=== PATIENT | female | born 1995 | race Caucasian/White ===

== ENCOUNTER 2018-06-16 00:28 | Emergency (ER) | payer MEDICAID, OTHER ==
[~2018-06-16] VITALS: Ht 162.6 cm; Wt 64.6 kg
[2018-06-16] MEDS ORDERED: DIPHENHYDRAMINE 25 MG CAPSULE ONE (01:13)
[2018-06-16] MEDS ORDERED: FAMOTIDINE 20 MG TABLET ONE (01:14)
--- NOTE | 2018-06-16 01:16 | NUR ---
PT SITTING UP ON GURNEY, FAMILY AT PT'S BEDSIDE, NAD, MEDICATED PER MAR, CALL LIGHT WITHIN REACH.
[2018-06-16] MEDS ORDERED: DIPHENHYDRAMINE 25 MG CAPSULE PO ONE (01:30)
[2018-06-16] MEDS ORDERED: FAMOTIDINE 20 MG TABLET PO ONE (01:30)
[2018-06-16 02:29] VITALS: BP 116/66
== END 2018-06-16 02:33 | disposition home or self-care (01) ==
LOC: ED 02:05
DX: T78.40XA Allergy, unspecified, initial encounter (principal); F17.210 Nicotine dependence, cigarettes, uncomplicated; X58.XXXA Exposure to other specified factors, initial encounter
CPT/HCPCS: 99284; J7512; Q0163

== ENCOUNTER 2019-08-31 21:16 | Inpatient (IN) | payer OTHER ==
[~2019-08-31] VITALS: Ht 167.6 cm; Wt 82.2 kg
[2019-08-31] MEDS ORDERED: OXYTOCIN 30U/ 0.9% NaCL 500ML 500 ML IV PRN (21:29)
[2019-08-31] MEDS ORDERED: OXYTOCIN 30U/ 0.9% NaCL 500ML 500 ML IV ONE (21:29)
[2019-08-31] MEDS ORDERED: D5%-LACTATED RINGERS 1,000 ML IV SCH (21:29)
[2019-08-31] MEDS ORDERED: FENTANYL PF 100 MCG/2ML IV PRN (21:30)
[2019-08-31] MEDS ORDERED: TERBUTALINE 1 MG/ML, 1ML IVPush PRN (21:30)
[2019-08-31] MEDS ORDERED: CALCIUM CARBONATE 500 MG TAB.CHEW PO PRN (21:30)
[2019-08-31] MEDS ORDERED: MISOPROSTOL 25 MCG TABLET VG PRN (21:30)
[2019-08-31] MEDS ORDERED: ONDANSETRON 2MG/ML, 2ML IVPush PRN (21:30)
[2019-08-31] MEDS ORDERED: FENTANYL PF 100 MCG/2ML IVPush PRN (21:30)
[2019-08-31] MEDS ORDERED: ALUMINUM/MAG/SIMETHICONE 30 ML UDC PO PRN (21:30)
[2019-08-31] MEDS ORDERED: TERBUTALINE 1 MG/ML, 1ML SQ PRN (21:30)
[2019-08-31] MEDS ORDERED: FENTANYL/BUPIV./NS/PF 250 ML EPIDCONT SCH ×2 (21:31→23:23)
[2019-08-31] MEDS ORDERED: LACTATED RINGERS 1,000 ML IV SCH ×2 (21:31→23:23)
[2019-08-31] MEDS ORDERED: NEWBORN KIT ONE (21:39)
[2019-08-31] MEDS ORDERED: LIDOCAINE 1%, 20ML ONE (21:40)
[2019-08-31] MEDS ORDERED: OXYTOCIN 30U/ 0.9% NaCL 500ML 500 ML ONE (21:40)
[2019-08-31] MEDS ORDERED: MISOPROSTOL 200 MCG TABLET ONE (21:40)
[2019-08-31] MEDS: LACTATED RINGERS 1,000 ML IV SCH (21:45)
[2019-08-31 21:52] LABS: BASOPHILS # (AUTO) 0.03 x10^3/uL (0-0.1); BASOPHILS % (AUTO) 0 % (0-1); EOSINOPHILS # (AUTO) 0.09 x10^3/uL (0-0.4); EOSINOPHILS % (AUTO) 1 % (1-7); LYMPHOCYTES # (AUTO) 2.39 x10^3/uL (1-3.4); LYMPHOCYTES % (AUTO) 24 % (22-44); MD NO; MEAN CORPUSCULAR HEMOGLOBIN 32.8 pg (27.0-34.8); MEAN CORPUSCULAR HGB CONC 34.1 g/dL (32.4-35.8); MEAN PLATELET VOLUME 8.8 fL (7.4-10.4); MONOCYTES # (AUTO) 0.69 x10^3/uL (0.2-0.8); MONOCYTES % (AUTO) 7 % (2-9); NEUTROPHILS % (AUTO) 67 % (42-75); PLATELET COUNT 234 x10^3/uL (130-400); RED BLOOD COUNT 3.76 x10^6/uL (3.82-5.3); RED CELL DISTRIBUTION WIDTH 12.8 % (9.6-15.2)
[2019-08-31] MEDS ORDERED: EPHEDRINE 50 MG/ML, 1ML IVPush PRN ×2 (22:00→23:30)
[2019-08-31] MEDS ORDERED: PLEASE ENTER HEIGHT AND WEIGHT MC SCH (22:00)
[2019-08-31] MEDS ORDERED: FENTANYL PF 500 MCG, BUPIVACAINE/PF 0.5%, 30ML 62.5 ML in SODIUM CHLORIDE 0.9% 177.5 ML EPIDCONT SCH (22:30)
[2019-08-31] MEDS ORDERED: LACTATED RINGERS 1,000 ML IVBOLUS PRN (23:30)
[2019-08-31] MEDS ORDERED: NALOXONE 0.4 MG/ML, 1ML IVPush PRN (23:30)
[2019-09-01] MEDS: LACTATED RINGERS 1,000 ML IV SCH ×3 (06:20→23:26)
[2019-09-01 08:06] VITALS: BP 119/67
[2019-09-01] MEDS: LACTATED RINGERS 1,000 ML IVBOLUS PRN ×2 (14:31→15:23)
[2019-09-01] MEDS ORDERED: BUPIVACAINE 0.25% ONE ×2 (15:24→15:29)
[2019-09-01] MEDS ORDERED: FENTANYL/BUPIV./NS/PF 250 ML EPIDCONT ONE (15:29)
[2019-09-01] MEDS ORDERED: LIDOCAINE 1%, 20ML ONE (15:29)
[2019-09-01] MEDS ORDERED: LIDOCAINE/PF 1.5%-EPI 1:200K, 30ML ONE (15:29)
[2019-09-01] MEDS ORDERED: LACTATED RINGERS 1,000 ML IV SCH (15:58)
[2019-09-01] MEDS: FENTANYL/BUPIV./NS/PF 250 ML EPIDCONT SCH (15:58)
[2019-09-01] MEDS ORDERED: DIPHENHYDRAMINE 50 MG/ML, 1ML IVPush PRN (16:00)
[2019-09-01] MEDS ORDERED: EPHEDRINE 50 MG/ML, 1ML IVPush PRN (16:00)
[2019-09-01] MEDS ORDERED: NALOXONE 0.4 MG/ML, 1ML IVPush PRN (16:00)
[2019-09-01] MEDS ORDERED: LACTATED RINGERS 1,000 ML IVBOLUS PRN (16:00)
[2019-09-01] MEDS ORDERED: ONDANSETRON 2MG/ML, 2ML IVPush PRN (16:00)
[2019-09-01] MEDS ORDERED: OXYTOCIN 30U/ 0.9% NaCL 500ML 500 ML IV PRN (21:29)
[2019-09-02] MEDS ORDERED: TERBUTALINE 1 MG/ML, 1ML ONE (01:28)
[2019-09-02] MEDS: LACTATED RINGERS 1,000 ML IV SCH (02:30)
[2019-09-02] MEDS ORDERED: FENTANYL PF 100 MCG/2ML ONE ×2 (06:08→13:45)
[2019-09-02] MEDS ORDERED: BUPIVACAINE 0.25% ONE (06:08)
[2019-09-02] MEDS ORDERED: IBUPROFEN 600 MG TABLET ONE (13:13)
[2019-09-02] MEDS ORDERED: IBUPROFEN 200 MG TABLET PO STA (13:15)
[2019-09-02] MEDS ORDERED: AMPICILLIN 2 GM in SODIUM CHLORIDE 0.9% 100 ML IV STA (13:16)
[2019-09-02] MEDS ORDERED: IBUPROFEN 600 MG TABLET PO ONE (13:30)
[2019-09-02] MEDS ORDERED: AMPICILLIN 2 GM in SODIUM CHLORIDE 0.9% 100 ML IV ONE (13:30)
[2019-09-02] MEDS ORDERED: CLINDAMYCIN PMX 900MG/50ML 50 ML ONE (13:32)
[2019-09-02] MEDS: CLINDAMYCIN PMX 900MG/50ML 50 ML IV SCH ×2 (13:34→21:37)
[2019-09-02] MEDS ORDERED: SIMETHICONE 80 MG CHEW TAB PO PRN (14:00)
[2019-09-02] MEDS ORDERED: ACETAMINOPHEN 325 MG TABLET PO PRN (14:00)
[2019-09-02] MEDS ORDERED: ONDANSETRON 2MG/ML, 2ML IV PRN (14:00)
[2019-09-02] MEDS ORDERED: OXYcodone/APAP 5/325MG TABLET PO PRN ×2 (14:00)
[2019-09-02 14:40] LABS: INTERNATIONAL NORMALIZED RATIO 0.93 (0.93-1.1); PROTHROMBIN TIME 9.8 Seconds (9.6-11.5)
[2019-09-02] MEDS ORDERED: OXYTOCIN 30U/ 0.9% NaCL 500ML 500 ML ONE (14:52)
[2019-09-02] MEDS: OXYTOCIN 30U/ 0.9% NaCL 500ML 500 ML IV SCH ×2 (14:57→23:32)
[2019-09-02 14:58] LABS: BASOPHILS # (AUTO) 0.02 x10^3/uL (0-0.1); BASOPHILS % (AUTO) 0 % (0-1); EOSINOPHILS % (AUTO) 0 % (1-7); LYMPHOCYTES # (AUTO) 0.38 x10^3/uL (1-3.4); LYMPHOCYTES % (AUTO) 3 % (22-44); MD SCAN; MEAN CORPUSCULAR HEMOGLOBIN 33.1 pg (27.0-34.8); MEAN CORPUSCULAR HGB CONC 34.6 g/dL (32.4-35.8); MEAN CORPUSCULAR VOLUME 95.8 fL (80-100); MEAN PLATELET VOLUME 8.8 fL (7.4-10.4); MONOCYTES # (AUTO) 0.18 x10^3/uL (0.2-0.8); MONOCYTES % (AUTO) 1 % (2-9); NEUTROPHILS % (AUTO) 95 % (42-75); PLATELET COUNT 164 x10^3/uL (130-400); RED BLOOD COUNT 3.49 x10^6/uL (3.82-5.3); RED CELL DISTRIBUTION WIDTH 12.6 % (9.6-15.2)
[2019-09-02] MEDS: FENTANYL/BUPIV./NS/PF 250 ML EPIDCONT SCH (15:58)
[2019-09-02 16:00] VITALS: BP 120/78
[2019-09-02] MEDS: AMPICILLIN 2 GM in SODIUM CHLORIDE 0.9% 100 ML IV SCH (18:23)
[2019-09-02 20:00] VITALS: BP 117/72
[2019-09-02 21:09] LABS: MEAN CORPUSCULAR HEMOGLOBIN 32.4 pg (27.0-34.8); MEAN CORPUSCULAR HGB CONC 33.6 g/dL (32.4-35.8); MEAN CORPUSCULAR VOLUME 96.4 fL (80-100); MEAN PLATELET VOLUME 8.9 fL (7.4-10.4); PLATELET COUNT 182 x10^3/uL (130-400); RED BLOOD COUNT 3.51 x10^6/uL (3.82-5.3); RED CELL DISTRIBUTION WIDTH 12.8 % (9.6-15.2)
[2019-09-02 21:42] LABS: BASOPHILS # (AUTO) 0.04 x10^3/uL (0-0.1); BASOPHILS % (AUTO) 0 % (0-1); EOSINOPHILS # (AUTO) 0.01 x10^3/uL (0-0.4); EOSINOPHILS % (AUTO) 0 % (1-7); LYMPHOCYTES # (AUTO) 0.86 x10^3/uL (1-3.4); LYMPHOCYTES % (AUTO) 3 % (22-44); MD NO; MONOCYTES % (AUTO) 5 % (2-9); NEUTROPHILS % (AUTO) 92 % (42-75)
[2019-09-03 00:05] VITALS: BP 114/69
[2019-09-03] MEDS: AMPICILLIN 2 GM in SODIUM CHLORIDE 0.9% 100 ML IV SCH ×3 (00:51→12:31)
[2019-09-03] MEDS: IBUPROFEN 600 MG TABLET PO PRN ×3 (01:05→17:53)
[2019-09-03 05:14] VITALS: BP 114/77
[2019-09-03] MEDS: CLINDAMYCIN PMX 900MG/50ML 50 ML IV SCH ×2 (05:38→14:04)
[2019-09-03 07:37] VITALS: BP 112/71
[2019-09-03] MEDS: PRENATAL VIT/IRON/FA 1 EACH TABLET PO SCH (08:25)
[2019-09-03] MEDS: OXYTOCIN 30U/ 0.9% NaCL 500ML 500 ML IV SCH (09:32)
[2019-09-03 12:00] VITALS: BP 123/78
[2019-09-03 19:20] VITALS: BP 129/87
[2019-09-03] MEDS: DOCUSATE 100 MG CAPSULE PO PRN (19:29)
[2019-09-03 23:33] VITALS: BP 98/59
[2019-09-04] MEDS: IBUPROFEN 600 MG TABLET PO PRN ×2 (03:19→09:29)
[2019-09-04 03:26] VITALS: BP 100/60
[2019-09-04 07:45] VITALS: BP 124/84
[2019-09-04] MEDS: PRENATAL VIT/IRON/FA 1 EACH TABLET PO SCH (09:00)
[2019-09-04] MEDS: DOCUSATE 100 MG CAPSULE PO PRN (09:29)
[2019-09-04] MEDS ORDERED: OXYC-302 PO (13:24)
[2019-09-04] MEDS ORDERED: IBUP-1222 PO (13:25)
== END 2019-09-04 14:31 | disposition home or self-care (01) | DRG 807 ==
LOC: LDIP 21:16 → 2NW 09-02 15:58
PROVIDERS: ADMIT Obstetrics & Gynecology; ATTEND Obstetrics & Gynecology
PROC: 10D07Z6 Extraction of Products of Conception, Vacuum, Via Natural or Artificial Opening (ICD-10-PCS; principal; 2019-09-02)
PROC: 3E033VJ Introduction of Other Hormone into Peripheral Vein, Percutaneous Approach (ICD-10-PCS; 2019-09-02)
PROC: 0HQ9XZZ Repair Perineum Skin, External Approach (ICD-10-PCS; 2019-09-02)
PROC: 3E0R3BZ Introduction of Anesthetic Agent into Spinal Canal, Percutaneous Approach (ICD-10-PCS; 2019-09-02)
PROC: 00HU33Z Insertion of Infusion Device into Spinal Canal, Percutaneous Approach (ICD-10-PCS; 2019-09-02)
DX: O77.9 Labor and delivery complicated by fetal stress, unspecified (principal); Z37.0 Single live birth; O70.0 First degree perineal laceration during delivery; Z3A.40 40 weeks gestation of pregnancy; Z87.891 Personal history of nicotine dependence; Z90.49 Acquired absence of other specified parts of digestive tract
CPT/HCPCS: 36415; J7121; 82803; 83605; 85025; 85610; 86592; 86850; 86900; G0378; J0290; J3010; J3490; J2590; J3105; J7120

== ENCOUNTER → 2020-06-15 | Outpatient (CLI) | payer OTHER ==
[~2020-06-15] MED LIST: IBUP-1222 PO; OXYC1TAB14 PO
[2020-06-15 18:44] LABS: BASOPHILS % (AUTO) 0 % (0-1); EOSINOPHILS % (AUTO) 1 % (1-7); LYMPHOCYTES % (AUTO) 34 % (22-44); MEAN CORPUSCULAR HEMOGLOBIN 31.8 pg (27.0-34.8); MEAN CORPUSCULAR HGB CONC 34.2 g/dL (32.4-35.8); MONOCYTES % (AUTO) 6 % (2-9); NEUTROPHILS % (AUTO) 58 % (42-75); PLATELET COUNT 282 x10^3/uL (130-400); RED BLOOD COUNT 4.27 x10^6/uL (3.82-5.3)
[2020-06-15 18:47] LABS: MICROSCOPIC AUTO
[2020-06-15 18:48] LABS: MD NO
== END | disposition home or self-care (01) ==
LOC: LAB 17:50
PROVIDERS: ATTEND Student in an Organized Health Care Education/Training Program
DX: Z34.81 Encounter for supervision of other normal pregnancy, first trimester (principal); Z3A.00 Weeks of gestation of pregnancy not specified
CPT/HCPCS: 36415; 81001; 85025; 86592; 86762; 86787; 86803; 86850; 86900; 87340; 87806; G0475

== ENCOUNTER 2020-07-28 11:04 | Outpatient (CLI) | payer OTHER | END 2020-07-28 23:59 | disposition home or self-care (01) | LOC: LAB 11:04 | PROVIDERS: ATTEND Student in an Organized Health Care Education/Training Program | DX: Z34.82 Encounter for supervision of other normal pregnancy, second trimester (principal) | CPT/HCPCS: 36415; 82105; 82677; 84702; 86336 ==

== ENCOUNTER 2020-12-14 21:51 | Outpatient (CLI) | payer OTHER ==
[~2020-12-14] VITALS: Ht 165.1 cm; Wt 75.4 kg
[2020-12-16] MEDS ORDERED: IBUP-1222 PO (12:01)
== END 2020-12-15 00:32 | disposition home or self-care (01) ==
LOC: LDOP 21:51
PROVIDERS: ATTEND Student in an Organized Health Care Education/Training Program
DX: O62.9 Abnormality of forces of labor, unspecified (principal); Z3A.38 38 weeks gestation of pregnancy
CPT/HCPCS: 59025

== ENCOUNTER 2020-12-15 03:32 | Inpatient (IN) | payer OTHER ==
[~2020-12-15] VITALS: Ht 170.2 cm; Wt 75.0 kg
[2020-12-15] MEDS ORDERED: NEWBORN KIT ONE (03:51)
[2020-12-15] MEDS ORDERED: FENTANYL PF 100 MCG/2ML IV PRN (04:00)
[2020-12-15] MEDS ORDERED: TERBUTALINE 1 MG/ML, 1ML IVPush PRN (04:00)
[2020-12-15] MEDS ORDERED: ONDANSETRON 2MG/ML, 2ML IVPush PRN (04:00)
[2020-12-15] MEDS ORDERED: TERBUTALINE 1 MG/ML, 1ML SQ PRN (04:00)
[2020-12-15] MEDS ORDERED: FENTANYL PF 100 MCG/2ML IVPush PRN (04:00)
[2020-12-15] MEDS ORDERED: OXYTOCIN 30U/ 0.9% NaCL 500ML 500 ML IV ONE (04:00)
[2020-12-15 04:05] LABS: BASOPHILS % (AUTO) 1 % (0-1); EOSINOPHILS % (AUTO) 0 % (1-7); LYMPHOCYTES % (AUTO) 24 % (22-44); MEAN CORPUSCULAR HEMOGLOBIN 31.6 pg (27.0-34.8); MEAN CORPUSCULAR HGB CONC 34.1 g/dL (32.4-35.8); MEAN PLATELET VOLUME 8.7 fL (7.4-10.4); MONOCYTES % (AUTO) 7 % (2-9); NEUTROPHILS % (AUTO) 68 % (42-75); PLATELET COUNT 220 x10^3/uL (130-400); RED BLOOD COUNT 4.17 x10^6/uL (3.82-5.3); RED CELL DISTRIBUTION WIDTH 12.6 % (9.6-15.2)
[2020-12-15] MEDS ORDERED: OXYcodone/APAP 5/325MG TABLET PO PRN ×2 (05:00)
[2020-12-15] MEDS ORDERED: SIMETHICONE 80 MG CHEW TAB PO PRN (05:00)
[2020-12-15] MEDS: OXYTOCIN 30U/ 0.9% NaCL 500ML 500 ML IV SCH ×2 (05:00→15:00)
[2020-12-15] MEDS ORDERED: MISOPROSTOL 200 MCG TABLET PR PRN (05:00)
[2020-12-15] MEDS ORDERED: ONDANSETRON 2MG/ML, 2ML IV PRN (05:00)
[2020-12-15] MEDS ORDERED: ACETAMINOPHEN 325 MG TABLET PO PRN (05:00)
[2020-12-15] MEDS: IBUPROFEN 600 MG TABLET PO PRN ×3 (05:08→21:36)
[2020-12-15 06:15] VITALS: BP 114/69
[2020-12-15] MEDS: DOCUSATE 100 MG CAPSULE PO PRN (08:54)
[2020-12-15] MEDS: PRENATAL VIT/IRON/FA 1 EACH TABLET PO SCH (08:55)
[2020-12-15 11:00] VITALS: BP 104/64
[2020-12-15 12:24] LABS: BASOPHILS % (AUTO) 1 % (0-1); EOSINOPHILS % (AUTO) 0 % (1-7); LYMPHOCYTES % (AUTO) 18 % (22-44); MEAN CORPUSCULAR HEMOGLOBIN 32.1 pg (27.0-34.8); MEAN CORPUSCULAR HGB CONC 34.8 g/dL (32.4-35.8); MEAN PLATELET VOLUME 9.2 fL (7.4-10.4); MONOCYTES % (AUTO) 6 % (2-9); NEUTROPHILS % (AUTO) 76 % (42-75); PLATELET COUNT 216 x10^3/uL (130-400); RED BLOOD COUNT 3.89 x10^6/uL (3.82-5.3); RED CELL DISTRIBUTION WIDTH 12.7 % (9.6-15.2)
[2020-12-15 16:20] VITALS: BP 109/71
[2020-12-15 19:30] VITALS: BP 114/71
[2020-12-16] VITALS: BP 104/67
[2020-12-16] MEDS ORDERED: HEPATITIS B PED VACCINE/PF 5MCG/0.5ML IM-VACC ONE (00:19)
[2020-12-16 04:00] VITALS: BP 108/65
[2020-12-16] MEDS: DOCUSATE 100 MG CAPSULE PO PRN (09:42)
[2020-12-16] MEDS: PRENATAL VIT/IRON/FA 1 EACH TABLET PO SCH (09:42)
[2020-12-16 10:20] VITALS: BP 114/73
[2020-12-16] MEDS ORDERED: IBUP-1222 PO (12:01)
== END 2020-12-16 12:30 | disposition home or self-care (01) | DRG 807 ==
LOC: LDOP 03:32 → LDIP 03:38 → 2NW 05:44
PROVIDERS: ADMIT Student in an Organized Health Care Education/Training Program; ATTEND Student in an Organized Health Care Education/Training Program
PROC: 10E0XZZ Delivery of Products of Conception, External Approach (ICD-10-PCS; principal; 2020-12-15)
PROC: 10907ZC Drainage of Amniotic Fluid, Therapeutic from Products of Conception, Via Natural or Artificial Opening (ICD-10-PCS; 2020-12-15)
DX: O69.81X0 Labor and delivery complicated by cord around neck, without compression, not applicable or unspecified (principal); Z37.0 Single live birth; Z3A.38 38 weeks gestation of pregnancy; Z82.49 Family history of ischemic heart disease and other diseases of the circulatory system; Z90.49 Acquired absence of other specified parts of digestive tract; Z20.822 Contact with and (suspected) exposure to COVID-19
CPT/HCPCS: 36415; 85025; 86592; 86850; 86900; 87635; G0378; J2590